=== PATIENT | male | born 1980 | race Caucasian/White ===

== ENCOUNTER 2018-11-20 13:41 | Emergency (ER) | payer OTHER ==
[2018-11-20 13:49] VITALS: BP 135/82; PULSE 74; RESP 16; TEMP 98.4; O2SAT 98
--- NOTE | 2018-11-20 14:11 | C.PDOC ---
History Of Present Illness 38 year old male presents to ED with complaint of new onset right 5th finger deformity that was incidentally noticed yesterday. Patient denies specific injury and states it occurred "maybe after I was at the gym?". Patient denies any other associated pain. He states "I just happened to notice it last night." Patient is unable to extend the full tip of his finger. He denies numbness, weakness, or any other injuries. NEW ONSET R 5TH FINGER DEFORM INCIDENTALLY NOTICED YEST. PT DENIES SPECIFIC INJURY "MAYBE AFTER I WAS AT THE GYM?" NO ASSOC PAIN "I JUST HAPPENED TO NOTICE IT LAST NIGHT". UNABLE TO FULL EXTEND TIP OF FINGER. NO OTHER ASSOC SX EXAM NONTOXIC EXT R HAND MALLET FINGER DIP 5TH FINGER. AROM PIP, MIP JOINT WO DIFF. NO ACTIVE EXTENSION DIP, +PROM. NO SWELL FOCAL DEF; NAIL WNL SKIN INTACT NEURO INTACT REMAINDER NEG Time Seen by Provider: 11/20/18 13:51 Chief Complaint (Nursing): Upper Extremity Problem/Injury History Per: Patient History/Exam Limitations: no limitations Onset/Duration Of Symptoms: Days (1), Sudden Onset Current Symptoms Are (Timing): Still Present Past Medical History Reviewed: Historical Data, Nursing Documentation, Vital Signs Vital Signs: Last Vital Signs Temp 98.4 F 11/20/18 13:48 Pulse 74 11/20/18 13:48 Resp 16 11/20/18 13:48 BP 135/82 11/20/18 13:48 Pulse Ox 98 11/20/18 13:48 Primary Care Provider: FAMILY PROVIDER,NO - Medical History PMH: No Chronic Diseases Surgical History: No Surg Hx Family History: States: Unknown Family Hx - Social History Hx Tobacco Use: No Hx Alcohol Use: Yes Hx Substance Use: No - Immunization History Hx Tetanus Toxoid Vaccination: Yes Hx Influenza Vaccination: Yes Hx Pneumococcal Vaccination: Yes Review Of Systems Except As Marked, All Systems Reviewed And Found Negative. Musculoskeletal: Positive for: Other (right 5th finger deformity) Physical Exam - Physical Exam Appears: Well, Non-toxic, No Acute Distress Skin: Normal Color, Warm, Dry, No Rash Head: Atraumatic, Normacephalic Eye(s): bilateral: Normal Inspection Neck: Normal ROM, Supple Chest: Symmetrical, No Deformity Cardiovascular: Rhythm Regular, No Murmur Respiratory: No Accessory Muscle Use, No Rales, No Rhonchi, No Wheezing Gastrointestinal/Abdominal: Soft, No Tenderness Extremity: Normal ROM (DIP and MIP joint of the right 5th finger), Capillary Refill (<2 seconds), Deformity (right hand mallet finger DIP 5th digit), Other (right hand mallet finger DIP 5th finger, no active extension of the DIP joint, +PROM, no edema, focal deformity, nail within normal limits) Pulses: Left Radial: Normal, Right Radial: Normal Neurological/Psych: Oriented x3, Normal Speech, Normal Cognition ED Course And Treatment O2 Sat by Pulse Oximetry: 98 (in RA) Pulse Ox Interpretation: Normal - Other Rad R 5 FINGER X-Ray: Interpreted by Me (MALLET FINGER DIP. NO FX DISLOC) Progress Note: Right hand 5th digit X-ray ordered. Disposition Counseled Patient/Family Regarding: Studies Performed, Diagnosis, Need For Followup - Disposition Referrals: Mari Fonseca MD [Staff Provider] - Disposition: HOME/ ROUTINE Disposition Time: 14:12 Condition: GOOD Additional Instructions: WEAR SPLINT CONTINUOUSLY UNTIL FOLLOW UP WITH HAND SURGERY. Instructions: Common Finger Injuries (DC) Forms: [facility] (Chinese), Work Excuse - Clinical Impression Clinical Impression: Mallet finger - Scribe Statement The provider has reviewed the documentation as recorded by the Scribe (Rolanda Hanks) All medical record entries made by the Scribe were at my direction and personally dictated by me. I have reviewed the chart and agree that the record accurately reflects my personal performance of the history, physical exam, medical decision making, and the department course for this patient. I have also personally directed, reviewed, and agree with the discharge instructions and disposition. Orthopedic Care Application Of:: Finger Splint
--- NOTE | 2018-11-20 14:22 | RAD ---
Date of service: 11/20/2018 PROCEDURE: Right small finger radiographs. HISTORY: TRAUMA COMPARISON: None. TECHNIQUE: AP radiograph of the right hand, as well as spot oblique and lateral images of small finger were obtained. 3 views obtained. FINDINGS: RIGHT SMALL FINGER: Normal right small finger, without fracture or focal lesion. Remainder of the right hand (as seen on the AP view) grossly unremarkable. JOINTS: Normal. SOFT TISSUES: Normal. OTHER FINDINGS: None. IMPRESSION: Normal right small finger radiographs.
== END 2018-11-20 14:46 | disposition home or self-care (01) ==
LOC: C.ER 13:41
DX: M20.011 Mallet finger of right finger(s) (principal)